=== PATIENT | male | born 1960 | race Caucasian/White ===

== ENCOUNTER 2019-05-23 19:54 | Emergency (ER) | payer MEDICARE, MEDICAID ==
[~2019-05-23] VITALS: Ht 180.3 cm; Wt 73.0 kg
[2019-05-23 20:00] VITALS: BP 114/75
--- NOTE | 2019-05-23 20:47 | PHYS DOC ---
Past Medical History Past Medical History: Alcoholism Adult General Chief Complaint Chief Complaint: ABDOMINAL PAIN HPI HPI Patient is a 58 year old male with history of traumatic brain injury, left eye blindness, alcoholism who presents by EMS with complaint of abdominal pain and shortness of breath. Patient lives in a local [place] and seen by his primary care physician yesterday and had prescription of Xanax but today felt shaky and somebody called 911 this morning but patient refused medical attention. Patient states he had 1 pint of vodka today and complaining of abdominal pain for at least 4 weeks and chronic shortness of breath. Patient also complaining of left eye pain for a long time after he had lightheadedness related to injury. Denies suicidal and homicidal ideation and hallucination. Patient states he has history of cirrhosis. Patient smokes 1.5 cigarettes a day and denies using drugs. Review of Systems Review of Systems Constitutional: Denies fever or chills [] Eyes: Denies change in visual acuity, redness, or eye pain [] HENT: Denies nasal congestion or sore throat [] Respiratory: Denies cough, reports shortness of breath [] Cardiovascular: No additional information not addressed in HPI [] GI: Reports abdominal pain, denies nausea, vomiting, bloody stools or diarrhea [] : Denies dysuria or hematuria [] Musculoskeletal: Denies back pain or joint pain [] Integument: Denies rash or skin lesions [] Neurologic: Denies headache, focal weakness or sensory changes [] Endocrine: Denies polyuria or polydipsia [] All other systems were reviewed and found to be within normal limits, except as documented in this note. Current Medications Current Medications Current Medications Medications (Trade) Dose Ordered Sig/Chris Start Time Stop Time Status Last Admin Dose Admin Multivitamins 10 ml/Thiamine HCl 100 mg/Folic Acid 1 mg/Sodium Chloride 1,011.2 ml @ 1,000 mls/ hr 1X ONCE 05/23/19 21:00 05/23/19 22:00 Allergies Allergies Allergies Coded Allergies Type Severity Reaction Last Updated Verified No Known Drug Allergies 05/23/19 No Physical Exam Physical Exam Constitutional: Well nourished, mild distress, non-toxic appearance, smell of alcohol on breath. [] HENT: Normocephalic, atraumatic, bilateral external ears normal, oropharynx moist, no oral exudates, nose normal. [] Eyes: Left corneal opacity and blindness, conjunctiva normal, no discharge. [] Neck: Normal range of motion, no tenderness, supple, no stridor. [] Cardiovascular:Heart rate regular rhythm, no murmur [] Lungs & Thorax: Bilateral breath sounds clear to auscultation [] Abdomen: Bowel sounds normal, soft, no ascites, no tenderness, no masses, no pulsatile masses. [] Skin: Warm, dry, no erythema, no rash. [] Back: No tenderness, no CVA tenderness. [] Extremities: No tenderness, no cyanosis, no clubbing, ROM intact, no edema. [] Neurologic: Alert and oriented X 3, normal motor function, normal sensory function, no focal deficits noted. [] Psychologic: Affect anxious, mood normal. [] Current Patient Data Vital Signs Vital Signs Date Time Temp Pulse Resp B/P (MAP) Pulse Ox O2 Delivery O2 Flow Rate FiO2 05/23/19 20:00 98.8 102 17 114/75 (88) 96 Room Air 98.8 EKG EKG [] Radiology/Procedures Radiology/Procedures [] Course & Med Decision Making Course & Med Decision Making Evaluation of patient in ER showed 58-year-old male patient brought in by EMS because of chronic abdominal pain and shortness of breath. Patient didn't want to come to the hospital and somebody called 911 because of complaining of shortness of breath. Patient had a strong smell of smoking and alcohol and wanted to smoke in ER and signed AGAINST MEDICAL ADVICE. Patient ambulated without problem. Patient denies suicidal or homicidal ideation and refuses any blood test. Dragon Disclaimer Dragon Disclaimer This electronic medical record was generated, in whole or in part, using a voice recognition dictation system. Departure Departure Impression: Primary Impression: Left against medical advice Additional Impressions: Alcohol use Chronic abdominal pain Disposition: 07 AGAINST MEDICAL ADVICE (at 2045) Condition: STABLE Problem Qualifiers KIARRA JESUS MD May 23, 2019 20:47
[2019-05-23] MEDS ORDERED: MULTIVIT INFUSN,ADULT 4,VIT K 10 ML, THIAMINE INJ 100 MG, FOLIC ACID INJ 1 MG in IV NOR... IV ONE (21:00)
== END 2019-05-23 20:44 | disposition left against medical advice (07) ==
LOC: ER 19:54
DX: G89.29 Other chronic pain (principal); R10.9 Unspecified abdominal pain; F10.20 Alcohol dependence, uncomplicated; Y90.9 Presence of alcohol in blood, level not specified; R06.02 Shortness of breath; H57.12 Ocular pain, left eye; F17.210 Nicotine dependence, cigarettes, uncomplicated
CPT/HCPCS: 99284